=== PATIENT | female | born 1955 | race African-American/Black ===

== ENCOUNTER 2024-12-15 23:20 | Inpatient (IN) | payer OTHER ==
[~2024-12-15] VITALS: Ht 172.7 cm; Wt 100.2 kg
[2024-12-15 23:20] VITALS: RESP 36
[2024-12-15 23:48] LABS: BASOPHILS % 1.3 % (0.0-2.0); DIFFERENTIAL COMMENT 0; EOSINOPHILS % 5.2 % (0.0-5.0); HEMATOCRIT. 42.5 % (36.0-48.0); HEMOGLOBIN. 12.5 g/dL (12.0-16.0); LYMPHOCYTES % 26.6 % (20.0-50.0); MEAN CORPUSCULAR HEMOGLOBIN 24.8 pg (28.0-32.0); MEAN CORPUSCULAR HGB CONC 29.3 g/dL (31.0-37.0); MEAN CORPUSCULAR VOLUME 84.7 fL (81.0-99.0); MEAN PLATELET VOLUME 8.7 fl (7.4-10.4); MONOCYTES % 6.7 % (2.0-8.0); NEUTROPHILS % 60.2 % (40.0-76.0); PLATELET 208 x1000/uL (130-400); RED BLOOD CELL COUNT 5.02 mill/uL (4.2-5.4); RED CELL DISTRIBUTION WIDTH 20.2 % (11.6-14.6); WHITE BLOOD COUNT 12.6 x1000/uL (4.5-11.0)
[2024-12-16] VITALS (20 sets, daily range): BP systolic 90–157; BP diastolic 44–108; PULSE 96–118; RESP 15–24; TEMP 36.3–37.503; O2SAT 100
[2024-12-16 00:53] LABS: BG BASE EXCESS -3.6 mmol/L (-2.0-3.0); BG DEOXYHEMOGLOBIN 0.5 % (0.0-5.0); BG FRACTION INSPIRED OXYGEN 100; BG HCO3 ACT 21.8 mmol/L (21.0-28.0); BG METHEMOGLOBIN 0.1 % (0.5-1.5); BG OXYGEN SATURATION 99.5 % (94.0-98.0); BG OXYHEMOGLOBIN 98.4 % (94.0-98.0); BG PCO2 40.8 mmHg (32.0-45.0); BG PH 7.346 (7.350-7.450); BG PO2 148.2 mmHg (83.0-108.0); BG SAMPLE SITE LEFT RADIAL; BG TOTAL HEMOGLOBIN 12.1 g/dL (12.0-16.0)
[2024-12-16 01:10] LABS: CHLORIDE 100 mEq/L (98-107); POTASSIUM 5.2 mEq/L (3.5-5.1); SODIUM 139 mEq/L (136-145)
[2024-12-16 01:11] LABS: CALCIUM 9.5 mg/dL (8.7-10.4); CARBON DIOXIDE 22 mEq/L (21-32)
[2024-12-16 01:16] LABS: GLUCOSE 119 mg/dL (70-105)
[2024-12-16 01:17] LABS: ETHANOL BLOOD < 10 mg/dL (<10); UREA NITROGEN BLOOD 59 mg/dL (9-23)
[2024-12-16 01:19] LABS: PHOSPHORUS 5.3 mg/dL (2.5-4.9)
[2024-12-16 01:41] LABS: INR 2.2; PARTIAL THROMBOPLASTIN TIME 34.7 sec (23.4-31.0); PROTHROMBIN TIME 21.5 sec (9.6-11.0)
[2024-12-16 02:05] LABS: CREATININE 8.1 mg/dL (0.6-1.0); TROPONIN I HIGH SENSITIVITY 67 ng/L (3.0-34)
[2024-12-16 05:36] LABS: TROPONIN I HIGH SENSITIVITY 603 ng/L (3.0-34)
[2024-12-16] MEDS: HEPARIN 60 UNITS/KG BOLUS IV SCH (07:48)
[2024-12-16] MEDS: HEPARIN 25,000 UNITS PREMIX 250 ML IV SCH (08:19)
[2024-12-16] MEDS ORDERED: CLONIDINE 0.1MG TABLET PO PRN (10:15)
[2024-12-16] MEDS ORDERED: ONDANSETRON HCL 4MG/2ML INJ IV PRN (10:15)
[2024-12-16] MEDS ORDERED: DOCUSATE SODIUM 100MG CAPSULE PO PRN (10:15)
[2024-12-16] MEDS ORDERED: IPRATROPIUM/ALBUTEROL 0.5-3(2.5)MG/3ML NEB HHN PRN (10:15)
[2024-12-16] MEDS ORDERED: LEVOFLOXACIN 500MG PREMIX 100 ML IV SCH (11:00)
[2024-12-16] MEDS: SODIUM ZIRCONIUM CYCLOSILICATE 10GM/PACKET PO NR (11:57)
[2024-12-16] MEDS: FUROSEMIDE 40MG/4ML VIAL IVP SCH (11:57)
[2024-12-16] MEDS: VANCOMYCIN 1G PREMIX 200 ML IV SCH (11:58)
[2024-12-16 12:30] LABS: BG BASE EXCESS -2.5 mmol/L (-2.0-3.0); BG CARBOXYHEMOGLOBIN 0.6 % (0.5-1.5); BG DEOXYHEMOGLOBIN 2.2 % (0.0-5.0); BG FRACTION INSPIRED OXYGEN 80; BG HCO3 ACT 20.8 mmol/L (21.0-28.0); BG METHEMOGLOBIN 0.3 % (0.5-1.5); BG OXYGEN SATURATION 97.8 % (94.0-98.0); BG OXYHEMOGLOBIN 96.9 % (94.0-98.0); BG PCO2 31.6 mmHg (32.0-45.0); BG PH 7.437 (7.350-7.450); BG PO2 91.6 mmHg (83.0-108.0); BG SAMPLE SITE LEFT RADIAL; BG TOTAL HEMOGLOBIN 12.3 g/dL (12.0-16.0); BG VENT MODE MASK - partial NRB
[2024-12-16] MEDS ORDERED: HEPARIN BOLUS PRN aPTT <30 IV (13:30)
[2024-12-16] MEDS ORDERED: HEPARIN BOLUS PRN aPTT 30-44 IV (13:30)
[2024-12-16] MEDS: LEVOFLOXACIN 750MG PREMIX 150 ML IV SCH (13:37)
[2024-12-16] MEDS ORDERED: PIPERACILLIN/TAZO 3.375G/50ML 50 ML IV SCH (14:00)
[2024-12-16] MEDS: DILTIAZEM HCL 60MG TABLET PO SCH (14:21)
[2024-12-16 17:48] LABS: CREATINE KINASE MB FRACTION 1.6 ng/mL (0.5-3.6)
[2024-12-16 18:00] LABS: HEPATITIS B SURFACE ANTIGEN NEGATIVE (Negative)
[2024-12-16] MEDS: WARFARIN SODIUM 5MG TABLET PO SCH (18:00)
[2024-12-16 18:21] LABS: HEPATITIS A AB IGM NEGATIVE (Negative); HEPATITIS B CORE AB IGM NEGATIVE (Negative)
[2024-12-16 18:22] LABS: HEPATITIS C AB NON REACTIVE (Neg) (Negative)
[2024-12-16] MEDS: AZTREONAM 2GM in DEXTROSE 5% WATER 100ML IV SCH (20:38)
[2024-12-16] MEDS: FAMOTIDINE 20MG TABLET PO SCH (20:38)
[2024-12-16] MEDS: ACETAMINOPHEN 325MG TABLET PO PRN (21:02)
[2024-12-17] VITALS (12 sets, daily range): BP systolic 103–157; BP diastolic 52–82; PULSE 98–113; RESP 14–23; TEMP 36.3–36.6; O2SAT 91–100
[2024-12-17 00:29] LABS: CREATINE KINASE MB FRACTION 2.6 ng/mL (0.5-3.6)
[2024-12-17 06:13] LABS: BASOPHILS % 0.9 % (0.0-2.0); DIFFERENTIAL COMMENT 0; EOSINOPHILS % 0.8 % (0.0-5.0); HEMATOCRIT. 33.5 % (36.0-48.0); HEMOGLOBIN. 10.5 g/dL (12.0-16.0); LYMPHOCYTES % 14.7 % (20.0-50.0); MEAN CORPUSCULAR HEMOGLOBIN 24.8 pg (28.0-32.0); MEAN CORPUSCULAR HGB CONC 31.2 g/dL (31.0-37.0); MEAN CORPUSCULAR VOLUME 79.6 fL (81.0-99.0); MEAN PLATELET VOLUME 9.1 fl (7.4-10.4); MONOCYTES % 11.7 % (2.0-8.0); NEUTROPHILS % 71.9 % (40.0-76.0); PLATELET 238 x1000/uL (130-400); RED BLOOD CELL COUNT 4.22 mill/uL (4.2-5.4); RED CELL DISTRIBUTION WIDTH 19.9 % (11.6-14.6); WHITE BLOOD COUNT 8.9 x1000/uL (4.5-11.0)
[2024-12-17 06:22] LABS: INR 1.9; PROTHROMBIN TIME 18.8 sec (9.6-11.0)
[2024-12-17 06:32] LABS: POTASSIUM 5.2 mEq/L (3.5-5.1)
[2024-12-17 06:40] LABS: CREATININE 7.1 mg/dL (0.6-1.0)
[2024-12-17] MEDS ORDERED: AZTREONAM 1 G in DEXTROSE 5% WATER 50 ML IV SCH (07:30)
[2024-12-17] MEDS: ACETAMINOPHEN 325MG TABLET PO PRN (09:02)
[2024-12-17] MEDS: ENOXAPARIN 120MG/0.8ML SYR SUBCUT SCH (12:29)
[2024-12-17] MEDS: HYDROCODONE/ACETAMINOPHEN 5/325MG TABLET PO NR (15:48)
[2024-12-17] MEDS: PREDNISONE 20MG TABLET PO SCH (17:41)
[2024-12-17] MEDS ORDERED: IOHEXOL-350 100 ML BOTTLE ONE (23:12)
[2024-12-17] MEDS: LORAZEPAM 0.5MG TABLET PO PRN (23:16)
[2024-12-18] VITALS (21 sets, daily range): BP systolic 107–147; BP diastolic 49–104; PULSE 78–101; RESP 2–22; TEMP 36.114–36.6; O2SAT 93–99
[2024-12-18] MEDS: HYDROCODONE/ACETAMINOPHEN 5/325MG TABLET PO NR (00:52)
[2024-12-18 06:16] LABS: POTASSIUM 5.4 mEq/L (3.5-5.1)
[2024-12-18 06:17] LABS: CALCIUM 9.9 mg/dL (8.7-10.4)
[2024-12-18 06:19] LABS: INR 1.8; PROTHROMBIN TIME 18.6 sec (9.6-11.0)
[2024-12-18 06:36] LABS: CREATININE 8.7 mg/dL (0.6-1.0)
[2024-12-18] MEDS ORDERED: KETOROLAC 30MG/ML VIAL IV PRN (08:45)
[2024-12-18] MEDS ORDERED: NALOXONE HCL 0.4MG/ML VIAL IV PRN (08:45)
[2024-12-18] MEDS: TRAMADOL HCL/ACETAMINOPHEN 37.5/325MG TABLET PO PRN (10:07)
[2024-12-18] MEDS: GUAIFENESIN 200MG/10ML SUGAR FREE UDC PO PRN (10:18)
[2024-12-18] MEDS ORDERED: LEVOFLOXACIN 500MG PREMIX 100 ML IV SCH (11:00)
[2024-12-18] MEDS: LEVOFLOXACIN 500MG PREMIX 150 ML IV SCH (14:36)
[2024-12-18 16:47] LABS: TROPONIN I HIGH SENSITIVITY 2621 ng/L (3.0-34)
[2024-12-18] MEDS ORDERED: LEVO750T68 MT (17:56)
[2024-12-18] MEDS ORDERED: METH4TAB95 MT (17:56)
[2024-12-18] MEDS ORDERED: DILT60TA4 PO (17:56)
== END 2024-12-18 23:50 | disposition home or self-care (01) | DRG 871 ==
LOC: ER 23:28 → 5EST 12-16 03:36
PROVIDERS: ADMIT Hospitalist; ATTEND Hospitalist
PROC: 5A09357 Assistance with Respiratory Ventilation, Less than 24 Consecutive Hours, Continuous Positive Airway Pressure (ICD-10-PCS; 2024-12-15)
PROC: 5A1D70Z Performance of Urinary Filtration, Intermittent, Less than 6 Hours Per Day (ICD-10-PCS; principal; 2024-12-16)
PROC: 5A09357 Assistance with Respiratory Ventilation, Less than 24 Consecutive Hours, Continuous Positive Airway Pressure (ICD-10-PCS; 2024-12-16)
PROC: 5A1D70Z Performance of Urinary Filtration, Intermittent, Less than 6 Hours Per Day (ICD-10-PCS; 2024-12-18)
DX: A41.89 Other specified sepsis (principal); I21.A1 Myocardial infarction type 2; J96.01 Acute respiratory failure with hypoxia; N18.6 End stage renal disease; U07.1 COVID-19; J12.82 Pneumonia due to coronavirus disease 2019; I13.2 Hypertensive heart and chronic kidney disease with heart failure and with stage 5 chronic kidney disease, or end stage renal disease; I47.10 Supraventricular tachycardia, unspecified; I69.351 Hemiplegia and hemiparesis following cerebral infarction affecting right dominant side; D64.9 Anemia, unspecified; I50.9 Heart failure, unspecified; Z99.2 Dependence on renal dialysis; E83.39 Other disorders of phosphorus metabolism; E87.5 Hyperkalemia; M17.0 Bilateral primary osteoarthritis of knee; Z88.6 Allergy status to analgesic agent; Z88.0 Allergy status to penicillin; Z86.718 Personal history of other venous thrombosis and embolism; Z86.711 Personal history of pulmonary embolism
CPT/HCPCS: 36415; 36600; 71045; 71275; 80048; 80061; 80202; 80320; 82375; 82550; 82553; 82805; 83036; 83605; 83735; 83880; 84100; 84145; 84484; 84550; 85025; 85379; 86705; 86709; 86850; 86900; 87340; 87426; 90935; 93005; 93306; 93970; 94660; 97110; 97162; 97166; 97530; 99291; J1644; J1650; J1940; J1956; J3370; J3490; J7060; J7512; Q9967; G0480

== ENCOUNTER 2025-01-12 18:40 | Inpatient (IN) | payer OTHER ==
[~2025-01-12] VITALS: Ht 165.1 cm; Wt 89.4 kg
[~2025-01-12 18:40] MED LIST: DILT60TA4 PO; LEVO750T68 MT; METH4TAB95 MT
[2025-01-12] MEDS: ALBUTEROL (0.083%) 2.5MG/3ML NEB HHN STA (19:17)
[2025-01-12] MEDS: IPRATROPIUM BROMIDE (0.02%) 0.5MG/2.5ML NEB HHN STA (19:17)
[2025-01-12 19:21] VITALS: PULSE 89; RESP 22; O2SAT 99
[2025-01-12] MEDS ORDERED: AZITHROMYCIN 500MG/250ML 250 ML IV SCH (19:30)
[2025-01-12] MEDS ORDERED: CEFTRIAXONE 1GM/50ML 50 ML IV ONE (19:30)
[2025-01-12 19:38] LABS: BASOPHILS % 0.8 % (0.0-2.0); DIFFERENTIAL COMMENT 0; EOSINOPHILS % 6.4 % (0.0-5.0); HEMATOCRIT. 34.7 % (36.0-48.0); HEMOGLOBIN. 11.1 g/dL (12.0-16.0); LYMPHOCYTES % 20.1 % (20.0-50.0); MEAN CORPUSCULAR HEMOGLOBIN 24.7 pg (28.0-32.0); MEAN CORPUSCULAR HGB CONC 32.1 g/dL (31.0-37.0); MEAN PLATELET VOLUME 8.7 fl (7.4-10.4); MONOCYTES % 9.4 % (2.0-8.0); NEUTROPHILS % 63.3 % (40.0-76.0); PLATELET 272 x1000/uL (130-400); RED BLOOD CELL COUNT 4.51 mill/uL (4.2-5.4); RED CELL DISTRIBUTION WIDTH 18.8 % (11.6-14.6); WHITE BLOOD COUNT 10.3 x1000/uL (4.5-11.0)
[2025-01-12 19:48] LABS: CHLORIDE 98 mEq/L (98-107); POTASSIUM 4.4 mEq/L (3.5-5.1); SODIUM 138 mEq/L (136-145)
[2025-01-12 19:49] LABS: CALCIUM 8.7 mg/dL (8.7-10.4); CARBON DIOXIDE 28 mEq/L (21-32)
[2025-01-12 19:51] LABS: INR 2.9; PARTIAL THROMBOPLASTIN TIME 45.3 sec (23.4-31.0); PROTHROMBIN TIME 28.4 sec (9.6-11.0)
[2025-01-12 19:54] LABS: ETHANOL BLOOD < 10 mg/dL (<10); GLUCOSE 98 mg/dL (70-105); UREA NITROGEN BLOOD 37 mg/dL (9-23)
[2025-01-12 19:56] LABS: ALANINE AMINOTRANSFERASE 11 IU/L (10-49); ALBUMIN 3.8 g/dL (3.2-4.8); ASPARTATE AMINOTRANSFERASE 14 IU/L (<34); BILIRUBIN DIRECT 0.1 mg/dL (<=3.0); BILIRUBIN TOTAL 0.3 mg/dL (0.1-1.0); PROTEIN TOTAL 7.6 g/dL (6.0-8.3)
[2025-01-12 20:19] VITALS: RESP 34
[2025-01-12] MEDS: METHYLPREDNISOLONE SOD SUCC 125MG/2ML (ACT-O-VIAL) IV STA (20:20)
[2025-01-12 20:27] LABS: TROPONIN I HIGH SENSITIVITY 41 ng/L (3.0-34)
[2025-01-12 20:37] LABS: BG BASE EXCESS -2.6 mmol/L (-2.0-3.0); BG CARBOXYHEMOGLOBIN 0.4 % (0.5-1.5); BG DEOXYHEMOGLOBIN 0.4 % (0.0-5.0); BG FRACTION INSPIRED OXYGEN 100; BG HCO3 ACT 23.4 mmol/L (21.0-28.0); BG METHEMOGLOBIN 0.3 % (0.5-1.5); BG OXYGEN SATURATION 99.6 % (94.0-98.0); BG OXYHEMOGLOBIN 98.9 % (94.0-98.0); BG PCO2 45.5 mmHg (32.0-45.0); BG PH 7.329 (7.350-7.450); BG PO2 158.1 mmHg (83.0-108.0); BG TOTAL HEMOGLOBIN 12.2 g/dL (12.0-16.0); BG VENT MODE MASK - BIPAP
[2025-01-12] MEDS: NITROGLYCERIN 50MG PREMIX 250 ML IV ONE (20:48)
[2025-01-12] MEDS: HYDRALAZINE 20MG/ML VIAL IV ONE (20:48)
[2025-01-12 23:11] LABS: INFLUENZA TYPE A Presumptive Negative (Pres. Neg.)
[2025-01-12 23:12] LABS: INFLUENZA TYPE B Presumptive Negative (Pres. Neg.)
[2025-01-13] VITALS (81 sets, daily range): BP systolic 100–157; BP diastolic 43–139; PULSE 93–117; RESP 10–27; TEMP 36.22512–36.7; O2SAT 94–100
[2025-01-13] MEDS: CEFTRIAXONE 1GM/50ML 50 ML IV NR (00:43)
[2025-01-13] MEDS: AZITHROMYCIN 500MG/250ML 250 ML IV NR (00:44)
[2025-01-13] MEDS ORDERED: DIPHENHYDRAMINE 50MG/ML VIAL IV PRN (02:15)
[2025-01-13] MEDS ORDERED: NITROGLYCERIN 50MG PREMIX 250 ML IV PRN (02:15)
[2025-01-13] MEDS ORDERED: ONDANSETRON HCL 4MG/2ML INJ IV PRN (02:15)
[2025-01-13] MEDS ORDERED: ACETAMINOPHEN 325MG TABLET PO PRN ×4 (02:15→20:45)
[2025-01-13] MEDS ORDERED: IPRATROPIUM/ALBUTEROL 0.5-3(2.5)MG/3ML NEB NEB PRN (02:15)
[2025-01-13] MEDS: AMLODIPINE 10MG TABLET PO SCH (04:57)
[2025-01-13] MEDS: SODIUM CHLORIDE 0.9% 3ML FLUSH IVF SCH (04:57)
[2025-01-13 05:10] LABS: BG BASE EXCESS 5.9 mmol/L (-2.0-3.0); BG DEOXYHEMOGLOBIN 0.3 % (0.0-5.0); BG FRACTION INSPIRED OXYGEN 80; BG METHEMOGLOBIN 0.2 % (0.5-1.5); BG OXYGEN SATURATION 99.7 % (94.0-98.0); BG OXYHEMOGLOBIN 98.5 % (94.0-98.0); BG PCO2 36.8 mmHg (32.0-45.0); BG PH 7.514 (7.350-7.450); BG PO2 266.5 mmHg (83.0-108.0); BG SAMPLE SITE LEFT RADIAL; BG TOTAL HEMOGLOBIN 12.7 g/dL (12.0-16.0); BG VENT MODE MASK - BIPAP
[2025-01-13 05:48] LABS: HEMATOCRIT 31.2 % (36.0-48.0); HEMOGLOBIN 9.7 g/dL (12.0-16.0); MEAN CORPUSCULAR HEMOGLOBIN 24.1 pg (28.0-32.0); MEAN CORPUSCULAR HGB CONC 31.2 g/dL (31.0-37.0); MEAN CORPUSCULAR VOLUME 77.2 fL (81.0-99.0); PLATELET 255 x1000/uL (130-400); RED BLOOD CELL COUNT 4.04 mill/uL (4.2-5.4); RED CELL DISTRIBUTION WIDTH 19.3 % (11.6-14.6); WHITE BLOOD COUNT 6.4 x1000/uL (4.5-11.0)
[2025-01-13 06:29] LABS: CHLORIDE 93 mEq/L (98-107); SODIUM 131 mEq/L (136-145)
[2025-01-13 06:30] LABS: CALCIUM 8.1 mg/dL (8.7-10.4); CARBON DIOXIDE 26 mEq/L (21-32)
[2025-01-13 06:35] LABS: GLUCOSE 311 mg/dL (70-105); UREA NITROGEN BLOOD 40 mg/dL (9-23)
[2025-01-13] MEDS ORDERED: IOHEXOL-350 100 ML BOTTLE ONE (06:35)
[2025-01-13 07:57] LABS: CREATININE 8.3 mg/dL (0.6-1.0)
[2025-01-13] MEDS: CALCIUM ACETATE 667MG CAPSULE PO SCH (07:57)
[2025-01-13 08:56] LABS: HEPATITIS B SURFACE ANTIGEN NEGATIVE (Negative)
[2025-01-13] MEDS ORDERED: HEPARIN 5000 UNITS/ML VIAL SUBCUT SCH (09:00)
[2025-01-13] MEDS: FOLIC ACID/VITAMIN B COMP W-C TABLET PO SCH (09:11)
[2025-01-13] MEDS: PANTOPRAZOLE SODIUM 40 MG/VIAL IV SCH (09:11)
[2025-01-13 09:16] LABS: HEPATITIS A AB IGM NEGATIVE (Negative)
[2025-01-13 09:17] LABS: HEPATITIS B CORE AB IGM NEGATIVE (Negative); HEPATITIS C AB NON REACTIVE (Neg) (Negative)
[2025-01-13 11:37] LABS: IRON 20 ug/dL (50-170)
[2025-01-13 11:40] LABS: PHOSPHORUS 4.5 mg/dL (2.5-4.9); TOTAL IRON BINDING CAPACITY 510 ug/dl (250-425)
[2025-01-13 12:18] LABS: FERRITIN 1494 ng/mL (10-291); FOLIC ACID (FOLATE) SERUM 6.69 ng/mL (>5.38)
[2025-01-13 12:19] LABS: VITAMIN B12 SERUM 518 pg/mL (211-911)
[2025-01-13] MEDS: WARFARIN SODIUM 7.5MG TABLET PO SCH (17:46)
[2025-01-13] MEDS: DILTIAZEM HCL 60MG TABLET PO SCH (21:21)
[2025-01-14] VITALS (17 sets, daily range): BP systolic 116–162; BP diastolic 55–92; PULSE 92–105; RESP 15–22; TEMP 36.22512–36.7; O2SAT 92–100
[2025-01-14 07:43] LABS: POTASSIUM 4.2 mEq/L (3.5-5.1)
[2025-01-14 07:45] LABS: CALCIUM 8.7 mg/dL (8.7-10.4)
[2025-01-14 07:46] LABS: BASOPHILS % 0.2 % (0.0-2.0); DIFFERENTIAL COMMENT 0; EOSINOPHILS % 2.4 % (0.0-5.0); HEMATOCRIT. 31.9 % (36.0-48.0); HEMOGLOBIN. 10.3 g/dL (12.0-16.0); MEAN CORPUSCULAR HEMOGLOBIN 24.5 pg (28.0-32.0); MEAN CORPUSCULAR HGB CONC 32.4 g/dL (31.0-37.0); MEAN CORPUSCULAR VOLUME 75.5 fL (81.0-99.0); MEAN PLATELET VOLUME 8.8 fl (7.4-10.4); NEUTROPHILS % 67.4 % (40.0-76.0); PLATELET 282 x1000/uL (130-400); RED BLOOD CELL COUNT 4.23 mill/uL (4.2-5.4); RED CELL DISTRIBUTION WIDTH 19.2 % (11.6-14.6); WHITE BLOOD COUNT 7.6 x1000/uL (4.5-11.0)
[2025-01-14 08:06] LABS: CREATININE 7.5 mg/dL (0.6-1.0)
[2025-01-14] MEDS ORDERED: WARF-53 PO (14:02)
[2025-01-14] MEDS: CLONIDINE 0.1MG TABLET PO PRN (19:45)
[2025-01-15] MEDS ORDERED: FAMOTIDINE 20MG/2ML VIAL IV SCH (09:00)
[2025-01-15] MEDS ORDERED: WARFARIN SODIUM 5MG TABLET PO SCH (18:00)
[2025-01-19] MEDS ORDERED: WARFARIN SODIUM 7.5MG TABLET PO SCH (18:00)
== END 2025-01-14 20:36 | disposition home or self-care (01) | DRG 280 ==
LOC: ER 18:40 → EDBEDREQ 19:28 → MICUSO 21:26 → EDBEDREQTM 21:31 → EDBEDREQ 21:31 → EDBEDREQSVC 21:31 → 8WST 01-13 20:43
PROVIDERS: ADMIT Internal Medicine; ATTEND Internal Medicine
PROC: 5A09357 Assistance with Respiratory Ventilation, Less than 24 Consecutive Hours, Continuous Positive Airway Pressure (ICD-10-PCS; principal; 2025-01-13)
PROC: 5A1D70Z Performance of Urinary Filtration, Intermittent, Less than 6 Hours Per Day (ICD-10-PCS; 2025-01-13)
PROC: 5A1D70Z Performance of Urinary Filtration, Intermittent, Less than 6 Hours Per Day (ICD-10-PCS; 2025-01-14)
DX: I13.2 Hypertensive heart and chronic kidney disease with heart failure and with stage 5 chronic kidney disease, or end stage renal disease (principal); I50.31 Acute diastolic (congestive) heart failure; I21.A1 Myocardial infarction type 2; J96.01 Acute respiratory failure with hypoxia; N18.6 End stage renal disease; I31.39 Other pericardial effusion (noninflammatory); E87.1 Hypo-osmolality and hyponatremia; I16.0 Hypertensive urgency; R73.9 Hyperglycemia, unspecified; R74.8 Abnormal levels of other serum enzymes; D50.9 Iron deficiency anemia, unspecified; D63.1 Anemia in chronic kidney disease; E87.5 Hyperkalemia; Z79.01 Long term (current) use of anticoagulants; Z86.16 Personal history of COVID-19; Z86.711 Personal history of pulmonary embolism; Z86.718 Personal history of other venous thrombosis and embolism; Z86.73 Personal history of transient ischemic attack (TIA), and cerebral infarction without residual deficits; Z88.0 Allergy status to penicillin; Z88.6 Allergy status to analgesic agent; Z99.2 Dependence on renal dialysis
CPT/HCPCS: 36415; 36600; 71045; 71275; 80048; 80076; 80320; 82375; 82607; 82728; 82746; 82805; 82962; 83036; 83540; 83550; 83605; 83735; 83880; 84100; 84145; 84484; 85025; 85027; 85044; 86705; 86709; 86850; 86900; 87340; 87804; 90935; 93005; 94070; 94640; 94660; 94664; 98960; 99291; A4606; J0360; J0456; J0696; J2470; J2919; J3490; Q9967; G0480